=== PATIENT | female | born 1995 | race African-American/Black ===

== ENCOUNTER 2018-07-26 11:04 | Emergency (ER) | payer OTHER ==
[2018-07-26 11:59] LABS: AMORPHOUS SEDIMENT RFX SMALL (NEGATIVE); KETONE, URINE AUTO RFX NEGATIVE (NEGATIVE); MUCUS, URINE RFX SMALL (NEGATIVE); NITRITE, URINE AUTO RFX NEGATIVE (NEGATIVE); RBC, URINE AUTO RFX 2 /HPF (0-3); SPECIFIC GRAVITY UR AUTO RFX 1.018 (1.002-1.035); SQUAM EPITHELIAL CELL UR AURFX 7 /HPF (0-6); WBC, URINE AUTO RFX 5 /HPF (0-3)
[2018-07-26 12:16] LABS: LEUKOCYTE ESTERASE UR AUTO RFX 1+ (NEGATIVE)
[2018-07-26 13:29] LABS: CHLAMYDIA DNA AMPLIFICATION NEGATIVE (NEGATIVE); GC DNA AMPLIFICATION NEGATIVE (NEGATIVE)
== END 2018-07-26 13:24 | disposition home or self-care (01) ==
LOC: M ED 11:04
DX: B37.3 Candidiasis of vulva and vagina (principal)
CPT/HCPCS: 81001

== ENCOUNTER 2018-10-08 18:41 | Emergency (ER) | payer OTHER ==
[2018-10-08 20:02] LABS: KETONE, URINE AUTO RFX NEGATIVE (NEGATIVE); LEUKOCYTE ESTERASE UR AUTO RFX NEGATIVE (NEGATIVE); MUCUS, URINE RFX SMALL (NEGATIVE); NITRITE, URINE AUTO RFX NEGATIVE (NEGATIVE); RBC, URINE AUTO RFX 1 /HPF (0-3); SPECIFIC GRAVITY UR AUTO RFX 1.008 (1.002-1.035); SQUAM EPITHELIAL CELL UR AURFX 1 /HPF (0-6); WBC, URINE AUTO RFX 0 /HPF (0-3)
[2018-10-08 23:03] LABS: CHLAMYDIA DNA AMPLIFICATION NEGATIVE (NEGATIVE); GC DNA AMPLIFICATION NEGATIVE (NEGATIVE)
== END 2018-10-08 21:54 | disposition home or self-care (01) ==
LOC: M ED 18:41
DX: N76.0 Acute vaginitis (principal)
CPT/HCPCS: 81001

== ENCOUNTER 2018-11-15 11:40 | Emergency (ER) | payer OTHER ==
[~2018-11-15] VITALS: Ht 170.2 cm; Wt 77.3 kg
[~2018-11-15 11:40] MED LIST: FLAG500T PO; MONI4CRE3 PV
[2018-11-15] MEDS ORDERED: IBUP-1022 PO (13:28)
[2018-11-15] MEDS ORDERED: ROBA500T PO (13:28)
--- NOTE | 2018-11-15 13:28 | REP ---
RIGHT KNEE, FIVE VIEWS: HISTORY: Trauma. There is no acute fracture or dislocation. The joint spaces are normal in appearance. IMPRESSION:There is no acute fracture or dislocation. Electronically Signed by Jose Morales MD 11/15/2018 01:29 P
[2018-11-15 13:39] VITALS: BP 128/90
== END 2018-11-15 13:41 | disposition home or self-care (01) ==
LOC: M ED 11:40
DX: Z04.1 Encounter for examination and observation following transport accident (principal); S80.01XA Contusion of right knee, initial encounter; S16.1XXA Strain of muscle, fascia and tendon at neck level, initial encounter; V99.XXXA Unspecified transport accident, initial encounter; Y92.89 Other specified places as the place of occurrence of the external cause

== ENCOUNTER 2019-04-09 07:41 | Day surgery (SDC) | payer OTHER ==
[~2019-04-09] VITALS: Ht 170.2 cm; Wt 82.6 kg
[~2019-04-09 07:41] MED LIST changes: +IBUP-1022 PO; +LIDOCAINE 1% MDV 20ML VIAL SQ PRN; +ROBA500T PO
[2019-04-09] MEDS ORDERED: ACETAMINOPHEN 650 MG SUPP PR ONE (07:45)
[2019-04-09] MEDS ORDERED: NS 1,000 ML IV SCH (07:45)
[2019-04-09] MEDS ORDERED: LR 1,000 ML IV ONE (07:45)
[2019-04-09 08:19] LABS: HEMATOCRIT 35.4 % (36.0-47.0); HEMOGLOBIN 11.3 g/dl (12.0-15.5); MEAN CORPUSCULAR HEMOGLOBIN 26.8 pg (27.0-33.0); MEAN CORPUSCULAR HGB CONC 31.9 g/dl (32.0-36.5); MEAN CORPUSCULAR VOLUME 84.1 fl (80.0-96.0); PLATELET COUNT, AUTOMATED 358 10^3/uL (150-450); RED BLOOD COUNT 4.21 10^6/uL (4.00-5.40); WHITE BLOOD COUNT 4.7 10^3/uL (4.0-10.0)
[2019-04-09 08:49] LABS: BLOOD UREA NITROGEN 12 MG/DL (7-18); CALCIUM LEVEL 9.4 MG/DL (8.5-10.1); CARBON DIOXIDE LEVEL 27 MEQ/L (21-32); CHLORIDE LEVEL 107 MEQ/L (98-107); CREATININE FOR GFR 1.06 MG/DL (0.55-1.30); GLOMERULAR FILTRATION RATE > 60.0 (>60); GLUCOSE, FASTING 78 MG/DL (70-100); HCG, SERUM QUANTITATIVE < 1.0 MIU/ML; POTASSIUM SERUM 4.1 MEQ/L (3.5-5.1); SODIUM LEVEL 140 MEQ/L (136-145)
[2019-04-09] MEDS ORDERED: BUPIVACAINE HCL 0.5% 10 ML VIAL As Ordered ONE (10:03)
[2019-04-09] MEDS ORDERED: ACETAMINOPHEN 650 MG SUPP As Ordered ONE (10:03)
[2019-04-09] MEDS ORDERED: METHYLENE BLUE 0.5% (5MG/ML) 10 ML AMP (PROVAYBLUE)(Q9968 PER 1MG) As Ordered ONE (10:03)
[2019-04-09] MEDS ORDERED: SUGAMMADEX SODIUM 500 MG/5 ML VIAL (BRIDION) As Ordered ONE (10:48)
[2019-04-09] MEDS ORDERED: KETOROLAC 60 MG/2 ML VIAL (J1885) As Ordered ONE (10:48)
[2019-04-09] MEDS ORDERED: ONDANSETRON 4MG/2ML VIAL (J2405) As Ordered ONE (10:48)
[2019-04-09] MEDS ORDERED: fentaNYL 250 MCG/5 ML INJECTION (J3010) As Ordered ONE (10:48)
[2019-04-09] MEDS ORDERED: dexameTHASONE 4 MG/ML 1ML VIAL (J1100) As Ordered ONE (10:48)
[2019-04-09] MEDS ORDERED: PROPOFOL 200 MG/20 ML VIAL As Ordered ONE (10:48)
[2019-04-09] MEDS ORDERED: ROCURONIUM BROMIDE 50 MG/5 ML VIAL As Ordered ONE (10:48)
[2019-04-09] MEDS ORDERED: MIDAZOLAM INJ 2 MG/2 ML VIAL (J2250) As Ordered ONE (10:48)
[2019-04-09] MEDS ORDERED: GLYCOPYRROLATE INJ 0.2 MG/ML 2 ML VIAL As Ordered ONE (10:56)
[2019-04-09] MEDS ORDERED: LIDOCAINE 2% INJ 100 MG/5 ML SDV (FOR ANES.) As Ordered ONE (10:57)
[2019-04-09] MEDS ORDERED: ePHEDrine SULFATE 25 MG/5 ML(5MG/ML) SYRINGE As Ordered ONE (11:01)
[2019-04-09] MEDS ORDERED: KETOROLAC 30 MG/ML VIAL (J1885) IV PRN (11:45)
[2019-04-09] MEDS: fentaNYL 100 MCG/2 ML INJECTION (J3010) IV PRN ×4 (12:00→12:15)
[2019-04-09] MEDS ORDERED: ONDANSETRON 4MG/2ML VIAL (J2405) IV PRN (12:00)
[2019-04-09] MEDS ORDERED: LR 1,000 ML IV SCH (12:00)
[2019-04-09] MEDS ORDERED: PERCOCET 5MG/325MG TAB PO PRN (12:00)
[2019-04-09 13:10] VITALS: BP 127/78
--- NOTE | 2019-04-15 21:21 | RO ---
DATE OF PROCEDURE: 04/09/2019 POSTOPERATIVE DIAGNOSIS: Infertility. POSTOPERATIVE DIAGNOSIS: Infertility. OPERATION PROPOSED: Pap smear, diagnostic laparoscopy, chromotubation of tubes, hysteroscopy, D and C. OPERATION PERFORMED: Pap smear, diagnostic laparoscopy, chromotubation of tubes, hysteroscopy, D and C. SURGEON: Ralf Fung MD DUSTER TENDER: Sergio Frankel MD for extraction, retraction and visualization. ANESTHESIA: General plus local anesthetic for intraperitoneal procedures. ESTIMATED BLOOD LOSS: Less than 10 mL DESCRIPTION OF PROCEDURE: After adequate time-out, prepped and draped in lithotomy position, Mccray catheter in the bladder draining clear urine. Acetaminophen suppository 1300 mg per rectum, sequentials in place. No antibiotics required. A pap smear was performed before prepping the vagina and was sent off to pathology under separate cover. Also this patient's last menstrual period was 2018. On evaluation, the cervix appeared to be normal, midline. No mucopus discharge. Os was patent and normal. No evidence of cystourethral enterocele. No uterine and cervical prolapse. Reprepping and draping, small subumbilical incision was made. Veress needle was applied. 3.8 liters of CO2 to 14 to 15. Visiport was used. Direct entry into the abdomen. No evidence of perforation, hemorrhage or bleeding. Panoramic review. Right upper quadrant was normal. Left upper quadrant was normal. Anterior aspect of the bladder was clear. Posterior cul-de-sac was clean. No evidence of endometriosis, pelvic inflammatory disease or adhesions. Both tubes appeared to be normal to the fimbriated end. Surprisingly these ovaries appeared to be enlarged, somewhat like polycystic ovaries. One would reevaluate this lady in the form of a polycystic ovary syndrome (PCOS) with laboratory evaluation. Chromotubation took place and there was the dye easily flowed through both tubes indicating normal patency. With instrument and pad count correct we deflated to 4 mm pressure, removed the mainstem port and the lateral port. Put a deep stitch in the umbilical area. Superficial stitches into accessory port. Marcaine 0.25% to the incision site and skin tapes. Then going below, we removed the uterine elevator. It was already dilated significantly enough. We did endometrial curettings. As mentioned the last period for this lady was December 2018. Hysteroscopic evaluation. No evidence of intrauterine synechiae, fibroids, polyps or any other issues in relation to this lady's questionable infertility. Both ostia appeared to be normal. We used 150 mL in and 50 mL out. She did have a retroverted retroflexed uterus, but inconsequential and was not fixed. Our plan of management for this lady is to review her lab results regarding PCOS, probably utilize anovulatory documentation in the form of basal body temperature chart and possibility of letrozole induction of ovulation after adequate evaluation of semen analysis. The Mccray was removed. The patient was sent recovery in good condition.
== END 2019-04-09 13:20 | disposition home or self-care (01) ==
LOC: M SDC 07:41
PROVIDERS: ATTEND Obstetrics & Gynecology
DX: N97.9 Female infertility, unspecified (principal); N93.9 Abnormal uterine and vaginal bleeding, unspecified; F32.9 Major depressive disorder, single episode, unspecified; M32.9 Systemic lupus erythematosus, unspecified
CPT/HCPCS: 36415; 49329; 58350; 58558; 80048; 84702; 85027; 88305; G0123; J1100; J1885; J2250; J2405; J3010; Q9968

== ENCOUNTER → 2019-06-12 | Outpatient (CLI) | payer OTHER ==
[~2019-06-12] MED LIST changes: -LIDOCAINE 1% MDV 20ML VIAL SQ PRN
[2019-06-12 11:05] LABS: COMPLEMENT C3 100 MG/DL (90-180); COMPLEMENT C4 26 MG/DL (10-40); TOTAL PROTEIN,RANDOM URINE 8.2 MG/DL (0.0-12.0)
[2019-06-19 09:15] LABS: ANA (HEP2) Positive (.); ANTI DS-DNA AB <1:10 titer (.); RNP ANTIBODY < 0.2 AI (0.0-0.9); SMITHS ANTIBODY 0.4 AI (0.0-0.9)
== END ==
LOC: M LAB 10:05
PROVIDERS: ATTEND Internal Medicine Rheumatology
DX: R76.8 Other specified abnormal immunological findings in serum (principal)